=== PATIENT | male | born 1955 | race Caucasian/White ===

== ENCOUNTER 2024-01-29 10:26 | Outpatient (AMB) | payer MEDICARE, SELFPAY ==
--- NOTE | 2024-01-29 11:10 | A.SPINEOV_ITS ---
Intake Visit Reasons: low back pain Intake Note: Mr. Velasquez is here today c/o low back pain into bilateral legs. Spiritual Advisor Required: No Allergies No Known Allergies Allergy (Verified 01/29/24 11:11) Assessment & Plan Assessment & Plan (1) Lumbar stenosis with neurogenic claudication: Code(s): M48.062 - Spinal stenosis, lumbar region with neurogenic claudication Category: Medical Plan Dear colleague Thank you for referring Emanuel Velasquez to the office today with a chief complaint of recurrent bilateral leg pain and back pain. HPI: This 68-year-old male has a previous history of a lumbar decompression from which he recovered well. In July of this year he fell backwards and since that time he suffering from low back pain he states that he gets pain in his right hip after 1/2 mi walking. He can do activities or he can move his lawn with a push mower without difficulties until we sits down. Then he developed severe bilateral pain on the inside of his knees. This pain can can travel down his left leg. He also notices proximal leg weakness after sitting. PMH: Diabetes and stent placement. Medications: Amlodipine, aspirin, atorvastatin, gabapentin, hydrochlorothiazide, lisinopril, metformin, metoprolol Allergies: NKDA Social history: . Nonsmoker. Retired Physical Exam: Pleasant male. He has reversed lumbar lordosis. Straight leg raise produces mild radiation down his left leg. No motor or sensory deficits. Radiological Studies: MRI done at [place] on 01/01/2024 shows moderate L3-4 central spinal stenosis. There is severe left lateral recess stenosis and moderate right lateral recess stenosis at L4-5 and severe left L5-S1 lateral recess stenosis compressing the L4, L5 and S1 nerve roots. Impression/Plan: This patient is suffering from bilateral lumbar radiculopathy/neurogenic claudication due to multilevel spinal stenosis and lateral recess stenosis. The lateral recess stenosis is caused by arthritic changes and disc bulges. I would like to get a CT scan to make sure that the disc bulges are not calcified that this would interfere with the positive outcome of a possible surgery. The patient will bring the CT scan for review and then we will discuss the surgical plan. Thank you for allowing me to participate in your patients care. total time spent was 50 minutes in counseling ,coordination of plan, personal review of imaging, surgical decision making and subsequent plan Olivier Devlin MD, PhD Spine Fellowship Trained Neurosurgeon Director, [facility] Orders: Orders CT lumbar spine wo IV con Today M48.062 - Spinal stenosis, lumbar region with neurogenic claudication Coding Level of Care Code New Pt Level 4 (07240) Diagnoses Lumbar stenosis with neurogenic claudication M48.062
== END 2024-01-29 12:08 | disposition home or self-care (01) ==
PROVIDERS: PCP Nurse Practitioner Family; Referring Provider Nurse Practitioner Family; Visit Provider Neurological Surgery
DX: M48.062 Spinal stenosis, lumbar region with neurogenic claudication (principal)
CPT/HCPCS: 99204

== ENCOUNTER → 2024-01-29 10:26 | Outpatient (BNVA) | payer MEDICARE, SELFPAY | PROVIDERS: PCP Nurse Practitioner Family; Visit Provider Neurological Surgery | DX: M48.062 Spinal stenosis, lumbar region with neurogenic claudication (principal) | CPT/HCPCS: 99202 ==

== ENCOUNTER → 2024-03-04 09:07 | Outpatient (BNVA) | payer MEDICARE, SELFPAY | PROVIDERS: PCP Nurse Practitioner Family; Visit Provider Neurological Surgery ==

== ENCOUNTER 2024-03-11 08:14 | Outpatient (AMB) | payer MEDICARE, SELFPAY ==
--- NOTE | 2024-03-11 08:18 | A.SPINEOV_ITS ---
Intake Visit Reasons: Discuss CT Scan results Intake Note: Mr. Velasquez is here today to Discuss results of CT. Corporate Director Talent Assessment Required: No Allergies No Known Allergies Allergy (Verified 03/11/24 08:27) Assessment & Plan Assessment & Plan (1) Lumbar stenosis with neurogenic claudication: Code(s): M48.062 - Spinal stenosis, lumbar region with neurogenic claudication Category: Medical Plan On 03/11/2024, I saw for follow-up Emanuel Velasquez to review his CT scan of the lumbar spine. As you know he suffering from bilateral radiculopathy due to spinal stenosis L4-5 and L5-S1. The CT scan excludes calcification of the bulging discs, which is positive for his surgical outcome. The good news is that his symptoms have greatly improved in the last month and therefore we will hold off on any surgical intervention. He will return to my office if the symptoms return and at that point I will schedule him for a bilateral L4-5 and left L5-S1 decompression. I spent 20 minutes in his consult to review imaging and discussing plan of care. Olivier Devlin MD, PhD Spine Fellowship Trained Neurosurgeon Director, [facility] Coding Level of Care Code Est Pt Level 3 (45314) Diagnoses Lumbar stenosis with neurogenic claudication M48.062
== END 2024-03-11 08:58 | disposition home or self-care (01) ==
PROVIDERS: PCP Nurse Practitioner Family; Visit Provider Neurological Surgery
DX: M48.062 Spinal stenosis, lumbar region with neurogenic claudication (principal)
CPT/HCPCS: 99213

== ENCOUNTER → 2024-03-11 08:14 | Outpatient (BNVA) | payer MEDICARE, SELFPAY | PROVIDERS: PCP Nurse Practitioner Family; Visit Provider Neurological Surgery | DX: M48.062 Spinal stenosis, lumbar region with neurogenic claudication (principal) | CPT/HCPCS: 99212 ==